=== PATIENT | male | born 1990 | race Caucasian/White ===

== ENCOUNTER 2017-05-30 23:52 | Emergency (ER) | payer SELFPAY ==
[2017-05-31] MEDS ORDERED: IBUPROFEN 800 MG TABLET PO ONE (03:29)
[2017-05-31] MEDS ORDERED: BENZONATATE 100 MG CAPSULE PO ONE (03:29)
[2017-05-31] MEDS ORDERED: CLINDAMYCIN HCL 150 MG CAPSULE PO ONE (03:30)
--- NOTE | 2017-05-31 03:31 | ER Document Report ---
HPI - HPI Patient complains to provider of: upper right toothache, rash top wrist Onset: Other - long time Onset/Duration: Persistent Pain Level: 5 Context: 26 yo male c/o upper right toothache for a while, sick of it. Also c/o recurrent rash dorsal left wrist. Vomited twice tonight due to pain. Neosporin on rash which is pus, no itch. Wears gloves at [id number]. Associated Symptoms: None Exacerbated by: Denies Relieved by: Denies Similar symptoms previously: Yes - rash Recently seen / treated by doctor: No - DERM Skin Color: Normal Past Medical History - General Information source: Patient - Social History Smoking Status: Current Every Day Smoker Frequency of alcohol use: None Drug Abuse: None Lives with: Spouse/Significant other Family History: Reviewed & Not Pertinent Patient has suicidal ideation: No Patient has homicidal ideation: No - Medical History Medical History: Negative Renal/ Medical History: Denies: Hx Peritoneal Dialysis Surgical Hx: Negative Vertical Provider Document - CONSTITUTIONAL Agree With Documented VS: Yes Exam Limitations: No Limitations General Appearance: No Apparent Distress - INFECTION CONTROL TRAVEL OUTSIDE OF THE [place] IN LAST 30 DAYS: No - HEENT HEENT: Normocephalic Notes: dental decay top right 3rd molar, no abscess - NECK Neck: Supple. negative: Lymphadenopathy-Left, Lymphadenopathy-Right - RESPIRATORY O2 Sat by Pulse Oximetry: 99 - MUSCULOSKELETAL/EXTREMETIES Musculoskeletal/Extremeties: MAEW, FROM - NEURO Level of Consciousness: Awake, Alert - DERM Integumentary: Rash - pustular dorsal left wrist ? 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 If you do not receive a survey, then you can go to the [facility] website, [email or web address] and place your comments about your very good care. Thank you very much. It was a pleasure being your medical provider today. Prescriptions: Ibuprofen [Motrin 800 mg Tablet] 800 mg PO Q8HP PRN #30 tablet PRN Reason: Clindamycin HCl [Cleocin 150 mg Capsule] 300 mg PO TID #42 capsule Forms: Return to Work Referrals: GOLDEN CHISHOLM DO [ACTIVE STAFF] - Follow up as needed
[2017-05-31 04:07] VITALS: BP 123/64
== END 2017-05-31 04:08 | disposition home or self-care (01) ==
LOC: ER 23:52
DX: K02.9 Dental caries, unspecified (principal); L08.0 Pyoderma; K08.89 Other specified disorders of teeth and supporting structures; R21 Rash and other nonspecific skin eruption; R11.10 Vomiting, unspecified; F17.200 Nicotine dependence, unspecified, uncomplicated
CPT/HCPCS: 99282